=== PATIENT | male | born 1980 | race Caucasian/White ===

== ENCOUNTER 2018-04-18 07:57 | Emergency (ER) | payer BC ==
--- OUTSIDE RECORDS SUMMARY | 2018-04-18 08:12 | XMS REPORT | Continuity of Care Document ---
:1980 External Reference #:[id number] Author Name Jeancarlos Bullock M.D. Address [address] [place] [id number] Care Team Providers Name Role Phone Roque Morales, Care Team Information Manager Transit Unavailable Roque Morales, Primary Care Physician Unavailable Payers Date Identification Numbers Payment Provider Subscriber Effective: 2017 Policy Number: [id number] [facility] Ppo Hasmukh Zhu PayID: [id number] [address] [address] [place] [address] Advance Directives Description No Information Available Problems Date Description Provider Status Onset: 07/14/2017 Nicotine dependence Jeancarlos Bullock M.D. Active Note: 1 PPD- 23 years Onset: 07/14/2017 Generalized anxiety disorder Jaencarlos Bullock M.D. Active Onset: 07/28/2017 Mixed hyperlipidemia Jeancarlos Bullock M.D. Active Onset: 01/11/2018 Psoriasis Jeancarlos Bullock M.D. Active Note: sees feed mixer helper Onset: 02/07/2018 Atrial fibrillation Jeancarlos Bullock M.D. 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 Smoke-Free Home is not smoke-free Pets None Occupation Currently Working Work Status Currently Working Hand Dominance Right-handed ETOH Use Denies alcohol use Recreational Drug Use Denies Drug Use Tobacco Use Start: Unknown Heavy tobacco smoker (more than 10 cigarettes/day) Smoking Status Reviewed: 04/05/18 Heavy tobacco smoker (more than 10 cigarettes/day) Guns in Home No Smoke Alarms Yes UNKNOWN Spiritism Allergies, Adverse Reactions, Alerts Description No Known Drug Allergies Medications Medication Date Status Form Strength Qnty SIG Indications Ordering Provider Halobetasol 03/05/ Active Cream 0.05% 50gm Apply to L40.8 Kamal Propionate 2019 affected [facility], area twice M.D. a day for 2 weeks.Then 2 weeks off medication before resuming it. Otezla 03/05/ Active TBPK 10&20&30mg 55unit take as L40.8 Roque J 2019 s directed Carmen D.OEleni Omeprazole 07/14/ Active Capsules 20mg 90caps 1 by mouth K21.[address] every Kobe, day-otc M.D. Nicotine 07/14/ Active Patches 21mg/24HR 28unit Use 1 patch F17.210 2017 24HR s to skin Kobe, every 24 M.D. hours Clobetasol 10/30/ Hx Cream 0.05% 60gm apply twice L40.8 Rhonda Propionate 2018 - a day as Pulconnieo, 04/05/ directed N.P. 2019 Valacyclovir 09/22/ Hx Tablets 1gm 6tabs Take 1 tab L40.8 Kamal HCL 2018 - by twice Kobe, 01/11/ daily for 3 M.D. 2018 days Cephalexin 09/22/ Hx Capsules 500mg 21caps Take 1 L03.211 2017 - capsule Kobe, 09/29/ every 8 M.D. 2018 hours for 7 days Mupirocin 07/28/ Hx Ointment 2% 44gm apply L03.211 Kamfl 2017 - topically Kobe, 09/29/ to affected M.D. 2018 area twice daily No Active 07/14/ Hx Unknown Medications 2017 - 2017 Paroxetine HCL 07/14/ Hx Tablets 20mg 30tabs 1 by mouth F41.1 Kamal 2017 - every Kobe, 08/26/ morning M.D. 2018 Hydroxyzine 07/14/ Hx Capsules 25mg 30caps Take 1 tab F41.1 Kamal Pamoate 2018 - at bedtime Kobe, 08/26/ as needed M.D. 2018 for anxiety/sle ep Immunizations Description No Information Available Vital Signs Date Vital Result Comment 04/05/2018 1:41pm Body Temperature 96.7 F Weight 141.38 lb Heart Rate 80 /min BP Systolic 102 mmHg left arm BP Diastolic 80 mmHg left arm Respiratory Rate 18 /min Height 66 inches 5'6" BMI (Body Mass Index) 22.8 kg/m2 O2 % BldC Oximetry 96 % Ra Height in cm's 167.6 cm 03/05/2018 3:12pm Body Temperature 97.5 F Weight 142.00 lb Heart Rate 84 /min BP Systolic 128 mmHg BP Diastolic 70 mmHg Respiratory Rate 18 /min Height 66 inches 5'6" BMI (Body Mass Index) 22.9 kg/m2 Height in cm's 167.6 cm 01/11/2018 2:20pm Body Temperature 98.0 F Weight 147.00 lb Heart Rate 69 /min BP Systolic 120 mmHg left arm BP Diastolic 78 mmHg left arm Respiratory Rate 18 /min Height 66 inches 5'6" BMI (Body Mass Index) 23.7 kg/m2 O2 % BldC Oximetry 98 % Ra Left ear audiology results 20 db Right ear audiology results 20 db Right Visual Acuity Distance 20/20 Left Visual Acuity Distance 20/20 Height in cm's 167.6 cm 10/30/2017 4:03pm Body Temperature 96.7 F Weight 143.38 lb Heart Rate 71 /min BP Systolic 110 mmHg left arm BP Diastolic 80 mmHg left arm Respiratory Rate 18 /min Height 66 inches 5'6" BMI (Body Mass Index) 23.1 kg/m2 O2 % BldC Oximetry 97 % Ra Height in cm's 167.6 cm 09/29/2017 1:39pm Body Temperature 97.0 F Heart Rate 82 /min BP Systolic 116 mmHg left arm BP Diastolic 72 mmHg left arm Respiratory Rate 18 /min Height 66 inches 5'6" O2 % BldC Oximetry 96 % Ra Height in cm's 167.6 cm 09/22/2017 3:48pm Body Temperature 98.7 F Heart Rate 82 /min BP Systolic 110 mmHg left arm BP Diastolic 80 mmHg left arm Respiratory Rate 18 /min Height 66 inches 5'6" O2 % BldC Oximetry 96 % Ra Height in cm's 167.6 cm 08/25/2017 4:36pm Body Temperature 98.3 F Heart Rate 74 /min BP Systolic 138 mmHg BP Diastolic 82 mmHg Respiratory Rate 20 /min Height 66 inches 5'6" O2 % BldC Oximetry 98 % Height in cm's 167.6 cm 08/04/2017 4:19pm Body Temperature 96.5 F Weight 152.00 lb Heart Rate 89 /min BP Systolic 110 mmHg BP Diastolic 70 mmHg Height 66 inches 5'6" BMI (Body Mass Index) 24.5 kg/m2 O2 % BldC Oximetry 98 % Height in cm's 167.6 cm 07/28/2017 1:23pm Body Temperature 98.0 F Heart Rate 84 /min BP Systolic 130 mmHg BP Diastolic 80 mmHg Respiratory Rate 20 /min Height 66 inches 5'6" O2 % BldC Oximetry 98 % Height in cm's 167.6 cm 07/14/2017 10:42am Body Temperature 98.0 F Weight 154.12 lb Heart Rate 74 /min BP Systolic 130 mmHg BP Diastolic 100 mmHg BP Systolic Sitting 125 mmHg recheck BP Diastolic Sitting 80 mmHg recheck Respiratory Rate 20 /min Height 66 inches 5'6" BMI (Body Mass Index) 24.9 kg/m2 O2 % BldC Oximetry 98 % Height in cm's 167.6 cm Results Test Date Facility Test Result H/L Range Note CBC W/ Diff & PLT 03/05/2018 [facility] WBC 6.4 thous/L 3.8-10.8 1 RBC 4.64 mill/L 4.20-5.80 Hemoglobin 15.9 g/dL 13.2-17.1 Hematocrit 46.6 % 38.5-50.0 MCV 100.4 FL High 80.0-100.0 MCH 34.3 pg High 27.0-33.0 MCHC 34.1 g/dL 32.0-36.0 RDW 12.6 % 11.0-15.0 Platelet Count 187 thous/L 140-400 MPV 10.3 FL 7.5-12.5 Neutrophils,Absolute 4210 cells/L 1565-2378 Bands,Absolute PENDING Metamyelocytes,Absolute PENDING Myelocytes,Absolute PENDING Promyelocytes,Absolute PENDING Lymphocytes,Absolute 1480 cells/L 850-3900 Monocytes,Absolute 470 cells/L 200-950 Eosinophils,Absolute 240 cells/L 15-500 Basophils,Absolute 30 cells/L 0-200 Blast Cells,Absolute PENDING Nucleated RBC,Absolute PENDING Total Neutrophils,% 66 % 40-75 Bands,% PENDING Metamyelocytes,% PENDING Myelocytes,% PENDING Promyelocytes,% PENDING Total Lymphocytes,% 23 % 12-47 Reactive Lymphocytes PENDING Monocytes,% 7 % 4-12 Eosinophils,% 4 % 0-4 Basophils,% 1 % 0-1 2 Blasts,% PENDING Nucleated RBC PENDING Comment PENDING Comp Metabolic Panel 03/05/2018 [facility] Sodium 144 mmol/L 135-146 Potassium 4.2 mmol/L 3.5-5.3 Chloride 107 mmol/L 98-110 Carbon Dioxide 28 mmol/L 20-32 3 Calcium 9.7 mg/dL 8.6-10.3 Alkaline Phosphatase 83 U/L 40-115 Ast 24 U/L 10-40 Alt 31 U/L 9-46 Bilirubin,Total 0.4 mg/dL 0.2-1.2 Glucose 110 mg/dL High 65-99 4 Urea Nitrogen (BUN) 18 mg/dL 7-25 Creatinine 0.88 mg/dL 0.60-1.35 BUN/Creatinine Ratio 20.7 6-22 Protein,Total 7.2 g/dL 6.1-8.1 Albumin 4.8 g/dL 3.6-5.1 Globulin,Calculated 2.4 g/dL 1.9-3.7 A/G Ratio 2.0 1.0-2.5 Egfr Non-Afr. Bolivian 108 ML/MIN/1.73M2 > Or=60 Egfr 125 ML/MIN/1.73M2 > Or=60 Laboratory test finding 03/05/2018 [facility] Esr,Westergren 2 MM/HR 0-15 Rheumatoid Factor < 14 IU/mL <14 HSV 1/2 AB Igm Ifa W/RFX 09/22/2017 [facility] HSV 1 Igm Screen Negative Negative Titer HSV 2 Igm Screen Negative Negative 5 Herpeselect 1/2 Igg W/RFX 09/22/2017 [facility] HSV 1 Igg AB 38.90 INDEX High < 0.90 6 HSV-2 Inhib HSV 2 Igg AB < 0.90 INDEX < 0.90 7 Hepatitis C AB W/RFX 07/28/2017 [facility] Hepatitis C AB NON-REACTIVE Non- Reactive 8 To HCV Rna QN PCR Signal To Cutoff Ratio 0.05 Less Than 1.0 HIV 1/2 Ag & Abs 07/28/2017 [facility] HIV Ag/AB,4TH Gen NON-REACTIVE Non- Reactive 9 4TH Gen W/Reflexes Chlamydia/N 07/28/[address] [facility] [address],Rna,Tma,Urogen NOT DETECTED Not Detected 10 Gonorroeae Rna Tma ital Urogenit GC Rna,Tma,Urogen NOT DETECTED Not Detected 11 HSV 1/2 AB Igm Ifa W/RFX 07/28/2017 [facility] HSV 1 Igm Screen Negative Negative Titer HSV 2 Igm Screen Negative Negative 12 Laboratory test 07/28/2017 [facility] RPR (Monitor) NON-REACTIVE Non- Reactive 13 finding W/RFX Titer Hepatitis Acute 07/28/2017 [facility] HB S Ag NON-REACTIVE Non-Reactive Diag PNL Hepatitis A AB (Igm) NON-REACTIVE Non-Reactive HB Core AB (Igm) NON-REACTIVE Non-Reactive CBC W/ Diff & PLT 07/14/2017 [facility] WBC 7.2 thous/L 3.8-10.8 14 RBC 4.80 mill/L 4.20-5.80 Hemoglobin 16.1 g/dL 13.2-17.1 Hematocrit 47.9 % 38.5-50.0 MCV 99.7 FL 80.0-100.0 MCH 33.5 pg High 27.0-33.0 MCHC 33.6 g/dL 32.0-36.0 RDW 13.0 % 11.0-15.0 Platelet Count 175 thous/L 140-400 Platelet Sufficiency PENDING MPV 10.7 FL 7.5-12.5 Neutrophils,Absolute 4920 cells/L 7164-7976 Bands,Absolute PENDING Metamyelocytes,Absolute PENDING Myelocytes,Absolute PENDING Promyelocytes,Absolute PENDING Lymphocytes,Absolute 1460 cells/L 850-3900 Monocytes,Absolute 510 cells/L 200-950 Eosinophils,Absolute 260 cells/L 15-500 Basophils,Absolute 30 cells/L 0-200 Blast Cells,Absolute PENDING Nucleated RBC,Absolute PENDING Total Neutrophils,% 69 % 40-75 Bands,% PENDING Metamyelocytes,% PENDING Myelocytes,% PENDING Promyelocytes,% PENDING Total Lymphocytes,% 20 % 12-47 Monocytes,% 7 % 4-12 Eosinophils,% 4 % 0-4 Basophils,% 0 % 0-1 15 Blasts,% PENDING Nucleated RBC PENDING RBC Morphology PENDING Anisocytosis PENDING Poikilocytosis PENDING Microcytosis PENDING Macrocytosis PENDING Polychromasia PENDING Hypochromasia PENDING Target Cells PENDING Basophilic Stippling PENDING Comment PENDING Comp Metabolic Panel 07/14/2017 [facility] Sodium 140 mmol/L 135-146 Potassium 4.4 mmol/L 3.5-5.3 Chloride 103 mmol/L 98-110 Carbon Dioxide 32 mmol/L High 20-31 Calcium 10.1 mg/dL 8.6-10.3 Alkaline Phosphatase 83 U/L 40-115 Ast 39 U/L 10-40 Alt 98 U/L High 9-46 Bilirubin,Total 0.4 mg/dL 0.2-1.2 Glucose 60 mg/dL Low 65-99 16 Urea Nitrogen (BUN) 13 mg/dL 7-25 Creatinine 0.98 mg/dL 0.60-1.35 BUN/Creatinine Ratio 13.3 6-22 Protein,Total 7.9 g/dL 6.1-8.1 Albumin 5.0 g/dL 3.6-5.1 Globulin,Calculated 2.9 g/dL 1.9-3.7 A/G Ratio 1.8 1.0-2.5 Egfr Non-Afr. Bolivian 97 ML/MIN/1.73M2 > Or=60 Egfr 112 ML/MIN/1.73M2 > Or=60 Laboratory test finding 07/14/2017 [facility] TSH 2.29 mIU/L 0.40-4.50 Lipid Panel 07/14/2017 [facility] Cholesterol 214 mg/dL High <199 HDL Cholesterol 37 mg/dL Low >40 Cholesterol/HDL Ratio 5.8 CALC High <5.0 LDL Chol,Calculated 133 mg/dL High 0-100 17 Triglycerides 289 mg/dL High <150 Non-HDL Cholesterol 177 mg/dL High <130 18 [facility] 25-Hydroxy 07/14/2017 [facility] Vitamin D,25-Oh,Total 27 ng/mL Low 30-100 & 1,25 Dihydroxy Vitamin D,25-Oh,D3 27 ng/mL Vitamin D,25-Oh,D2 <4 ng/mL 19 Vitamin D,1,25 (Oh)2,Total 31 pg/mL 18-72 Vitamin D3,1,25 (Oh)2 31 pg/mL Vitamin D2,1,25 (Oh)2 <8 pg/mL 20 1 FASTING 2 Relative blood cell counts (%) should be compared with absolute cell counts (cells/mcL). Relative counts may not be clinically meaningful if the absolute count of one or more cell type is decreased. Reference ranges for relative cell counts derived from: A Manual of Laboratory and Diagnostics Tests, 9th Ed, Billie Heath & Ernandez, 2015. Pediatric Reference Intervals, 7th Ed, [facility], 2011. 3 Reference range for high altitude clients: 18-30 mmol/L 4 GLUCOSE REFERENCE RANGE BASED ON FASTING SPECIMEN. 5 The IFA procedure for measuring IgM antibodies to HSV 1 and HSV 2 detects both type-common and type-specific HSV antibodies. Thus, IgM reactivity to both HSV 1 and HSV 2 may represent crossreactive HSV antibodies rather than exposure to both HSV 1 and HSV 2. This test was developed and its analytical performance characteristics have been determined by [facility], [place], [place]. It has not been cleared or approved by the FDA. This assay has been validated pursuant to the CLIA regulations and is used for clinical purposes. 6 INDEX RESULTS INTERPRETATION ----- <0.90 NEGATIVE FOR ANTIBODIES TO HSV-1 IGG NO DETECTABLE ANTIBODIES TO HSV-1 OR HSV-2 WERE FOUND. A NEGATIVE RESULT GENERALLY INDICATES THAT THE PATIENT HAS NOT BEEN INFECTED, BUT DOES NOT ALWAYS RULE OUT ACUTE HSV INFECTION. IF CLINICAL EXPOSURE TO HSV IS SUSPECTED DESPITE A NEGATIVE FINDING, A SECOND SAMPLE SHOULD BE COLLECTED AND TESTED NO LESS THAN 4-6 WEEKS LATER. 0.90 - 1.10 EQUIVOCAL EQUIVOCAL SAMPLES SHOULD BE RETESTED ON A SECOND SAMPLE COLLECTED AND TESTED NO LESS THAN 4-6 WEEKS LATER. >=1.10 POSITIVE INDICATES THE PRESENCE OF DETECTABLE IGG ANTIBODY TO HSV-1 OR HSV-2 This assay utilizes recombinant type-specific antigens to differentiate HSV-1 from HSV-2 infections. A positive result cannot distinguish between recent and past infection. If recent HSV infection is suspected but the results are negative or equivocal, the assay should be repeated in 4-6 weeks. The performance characteristics of the assay have not been established for pediatric populations, immunocompromised patients or screening. 7 INDEX RESULTS INTERPRETATION ----- <0.90 NEGATIVE FOR ANTIBODIES TO HSV-2 IGG NO DETECTABLE ANTIBODIES TO HSV-1 OR HSV-2 WERE FOUND. A NEGATIVE RESULT GENERALLY INDICATES THAT THE PATIENT HAS NOT BEEN INFECTED, BUT DOES NOT ALWAYS RULE OUT ACUTE HSV INFECTION. IF CLINICAL EXPOSURE TO HSV IS SUSPECTED DESPITE A NEGATIVE FINDING, A SECOND SAMPLE SHOULD BE COLLECTED AND TESTED NO LESS THAN 4-6 WEEKS LATER. 0.90 - 1.10 EQUIVOCAL EQUIVOCAL SAMPLES SHOULD BE RETESTED ON A SECOND SAMPLE COLLECTED AND TESTED NO LESS THAN 4-6 WEEKS LATER. >=1.10 POSITIVE INDICATES THE PRESENCE OF DETECTABLE IGG ANTIBODY TO HSV-1 OR HSV-2 This assay utilizes recombinant type-specific antigens to differentiate HSV-1 from HSV-2 infections. A positive result cannot distinguish between recent and past infection. If recent HSV infection is suspected but the results are negative or equivocal, the assay should be repeated in 4-6 weeks. The performance characteristics of the assay have not been established for pediatric populations, immunocompromised patients or screening. 8 PATIENT UNABLE TO VOID; ADVISED TO RETURN FOR COLLECTION. SPLIT 07/28/2017 FROM [id number] PATIENT UNABLE TO VOID; ADVISED TO RETURN FOR COLLECTION. 9 HIV-1 antigen and HIV-1/HIV-2 antibodies were not detected. There is no laboratory evidence of HIV infection. PLEASE NOTE: This information has been disclosed to you from records whose confidentiality may be protected by state law. If your state requires such protection, then the state law prohibits you from making any further disclosure of the information without the specific written consent of the person to whom it pertains, or as otherwise permitted by law. A general authorization for the release of medical or other information is NOT sufficient for this purpose. For additional information please refer to http://education.OpenTable.10-20 Media/faq/KSB063 (This link is being provided for informational/ educational purposes only.) The performance of this assay has not been clinically validated in patients less than 2 years old. 10 This test was performed using the APTIMA COMBO2(R) Assay (GEN-PROBE(R). The analytical performance characteristics of this assay, when used to test SurePath(R) specimens have been determined by [facility]. 11 This test was performed using the APTIMA COMBO2(R) Assay (GEN-PROBE(R). The analytical performance characteristics of this assay, when used to test SurePath(R) specimens have been determined by [facility]. 12 The IFA procedure for measuring IgM antibodies to HSV 1 and HSV 2 detects both type-common and type-specific HSV antibodies. Thus, IgM reactivity to both HSV 1 and HSV 2 may represent crossreactive HSV antibodies rather than exposure to both HSV 1 and HSV 2. This test was developed and its analytical performance characteristics have been determined by [facility] [place], [place]. It has not been cleared or approved by the FDA. This assay has been validated pursuant to the CLIA regulations and is used for clinical purposes. 13 The RPR is a yjv-prifilvwer-kxtasxxo test; therefore a treponemal-specific confirmatory test should be performed unless prior syphilis infection has been documented for the patient. 14 FASTING 15 Relative blood cell counts (%) should be compared with absolute cell counts (cells/mcL). Relative counts may not be clinically meaningful if the absolute count of one or more cell type is decreased. Reference ranges for relative cell counts derived from: A Manual of Laboratory and Diagnostics Tests, 9th Ed, Billie Heath & Ernanedz, 2015. Pediatric Reference Intervals, 7th Ed, [facility], 2011. 16 GLUCOSE REFERENCE RANGE BASED ON FASTING SPECIMEN. 17 LDL-C is now calculated using the Lai-Rad calculation, which is a validated novel method providing better accuracy than the Friedewald equation in the estimation of LDL-C. Lai SCHERER et al.MARCELLE.2013;310(19):3239-7673 Desirable range <100 mg/dL for primary prevention; <70 mg/dL for patients with CHD or diabetic patients with >or=2 CHD risk factors. For additional information, please refer to http://[employer].Specific Media/faq/SZF607(This link is being provided for informational/educational purposes only.) 18 For patients with diabetes plus 1 major ASCVD risk factor, treating to a non-HDL-C goal of <100 mg/dL (LDL-C of <70 mg/ dL) is considered a therapeutic option. 19 25-OHD3 indicates both endogenous production and supplementation. 25-OHD2 is an indicator of exogenous sources such as diet or supplementation. Therapy is based on measurement of Total 25-OHD, with levels <20 ng/mL indicative of Vitamin D deficiency while levels between 20 ng/mL and 30 ng/mL suggest insufficiency. Optimal levels are > or=30 ng/mL. For more information on this test, go to http://[employer]WS [employer].PrimeraDx (Primera Biosystems)/faq/JQX887 20 Vitamin D3, 1,25(OH)2 indicates both endogenous production and supplementation. Vitamin D2, 1,25(OH)2 is an indicator of exogeous sources, such as diet or supplementation. Interpretation and therapy are based on measurement of Vitamin D,1,25(OH)2, Total. This test was developed and its analytical performance characteristics have been determined by [facility], [place], [place]. It has not been cleared or approved by the FDA. This assay has been validated pursuant to the CLIA regulations and is used for clinical purposes. Procedures Date Code Description Status 01/11/2018 18077 Visual Screening Test Completed 01/11/2018 32793 Brief Emotional/Behav Assessment W/ Scoring Doc Per Completed Standard Inst 01/11/2018 21566 Screening Hearing Test Completed 08/04/2017 88327 Electrocardiogram Complete Completed Encounters Type Date Location Provider Dx Diagnosis [facility] 03[facility]2018 [facility] Ro[facility] Morales L40.8 Other psoriasis 2:20p [facility] D.O. F17.210 Nicotine dependence, cigarettes, uncomplicated Office Visit 01/11/2018 2:[facility]p [facility] Bull[facility], Z00.00 [facility] M.DEleni general adult medical exam w/o abnormal findings Z13.89 Encounter for screening for other disorder F17.210 Nicotine dependence, cigarettes, uncomplicated Office Visit 10/30/2017 [facility] Rhonda L40.8 Other psoriasis 3:20p [facility] Pul[facility], N.P. Office Visit 09/29/2017 Teena Bullock, L03.211 Cellulitis of 1:30p [facility] M.D. 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 face R21 Rash and other nonspecific skin eruption D48.5 Neoplasm of uncertain behavior of skin Office Visit 08/04/2017 Teena Bullock, L03.211 Cellulitis of 4:15p [facility] M.D. face R00.2 Palpitations K21.9 Gastro-esophageal reflux disease without esophagitis Office Visit 07/28/2017 Teena Bullock, F41.1 Generalized 1:15p [facility] M.D. anxiety disorder L03.211 Cellulitis of face Z11.3 Encntr screen for infections w sexl mode of transmiss R94.5 Abnormal results of liver function studies E55.9 Vitamin D deficiency, unspecified E78.2 Mixed hyperlipidemia Office Visit 07/14/2017 10:00a [facility], M25.571 Pain in [place]ij[place] Mcdermott right ankle and joints of right foot F41.1 Generalized anxiety disorder K21.9 Gastro-esophageal reflux disease without esophagitis F17.210 Nicotine dependence, cigarettes, uncomplicated Plan of Treatment Future Appointment(s):07/05/2018 9:30 am - Jeancarlos Bullock M.D. at [facility]07/12/2018 9:15 am - Jeancarlos Bullock M.D. at [facility]
--- OUTSIDE RECORDS SUMMARY | 2018-04-18 08:12 | XMS REPORT | Continuity of Care Document ---
:1980 External Reference #:[id number] Author Name Saige Coats Care Team Providers Name Role Phone Roque Morales, Care Team Information Drier Feeder Unavailable Roque Morales, Primary Care Physician Unavailable Payers Date Identification Numbers Payment Provider Subscriber Effective: 2017 Policy Number: [id number] [facility] Ppo Hasmukh Zhu PayID: [id number] [address] [address] [place] [address] Advance Directives Description No Information Available Problems Date Description Provider Status Onset: 07/14/2017 Nicotine dependence Jeancarlos Bullock M.D. Active Note: 1 PPD- 21 years Onset: 07/14/2017 Generalized anxiety disorder Jeancarlos Bullock M.D. Active Onset: 07/28/2017 Mixed hyperlipidemia Jeancarlos Bullock M.D. Active Onset: 01/11/2018 Psoriasis Jeancarlos Bullock M.D. Active Onset: 02/07/2018 Atrial fibrillation Jeancarlos Bullock M.D. 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 Smoke-Free Home is not smoke-free Pets None Occupation Currently Working Work Status Currently Working Hand Dominance Right-handed ETOH Use Denies alcohol use Recreational Drug Use Denies Drug Use Tobacco Use Start: Unknown Heavy tobacco smoker (more than 10 cigarettes/day) Smoking Status Reviewed: 04/05/18 Heavy tobacco smoker (more than 10 cigarettes/day) Guns in Home No Smoke Alarms Yes UNKNOWN [employer] Allergies, Adverse Reactions, Alerts Description No Known Drug Allergies Medications Medication Date Status Form Strength Qnty SIG Indications Ordering Provider Halobetasol 03/05/ Active Cream 0.05% 50gm apply to L40.8 Roque J Propionate 2019 affected [place], area twice D.O. a day Otezla 03/05/ Active TBPK 10&20&30mg 55unit take as L40.8 Roque J 2019 s directed [place], D.O. Clobetasol 10/30/ Active Cream 0.05% 60gm apply twice L40.8 Rhonda Propionate 2018 a day as Ivy, directed N.P. Omeprazole 07/14/ Active Capsules 20mg 90caps 1 by mouth K21.[address] shine Kobe, day-otc M.D. Nicotine 07/14/ Active Patches 21mg/24HR 28unit Use 1 patch F17.210 2017 24HR s to skin Kobe, every 24 M.D. hours Valacyclovir 09/22/ Hx Tablets 1gm 6tabs Take 1 tab L40.8 Kamal HCL 2018 - by twice Kobe, 01/11/ daily for 3 M.D. 2018 days Cephalexin 09/22/ Hx Capsules 500mg 21caps Take 1 L03.211 Kam2017 - capsule Kobe, 09/29/ every 8 M.D. 2018 hours for 7 days Mupirocin 07/28/ Hx Ointment 2% 44gm apply L03.211 Kam2017 - topically Kobe, 09/29/ to affected M.D. 2018 area twice daily No Active 07/14/ Hx Unknown Medications 2017 - 2017 Paroxetine HCL 07/14/ Hx Tablets 20mg 30tabs 1 by mouth F41.1 Kamal 2017 - every Kobe, 08/26/ morning M.D. 2018 Hydroxyzine 07/14/ Hx Capsules 25mg 30caps Take 1 tab F41.1 Kamal Pamoate 2017 - at bedtime Kobe, 08/26/ as needed [...] MPV 10.3 FL 7.5-12.5 Neutrophils,Absolute 4210 cells/L 5232-6638 Bands,Absolute PENDING Metamyelocytes,Absolute PENDING Myelocytes,Absolute PENDING Promyelocytes,Absolute [...] 1.9-3.7 A/G Ratio 2.0 1.0-2.5 Egfr Non-Afr. Filipino 108 ML/MIN/1.73M2 > Or=60 Egfr 125 ML/MIN/1.73M2 [...] MPV 10.7 FL 7.5-12.5 Neutrophils,Absolute 4920 cells/L 7237-5780 Bands,Absolute PENDING Metamyelocytes,Absolute PENDING Myelocytes,Absolute PENDING Promyelocytes,Absolute [...] 1.9-3.7 A/G Ratio 1.8 1.0-2.5 Egfr Non-Afr. Filipino 97 ML/MIN/1.73M2 > Or=60 Egfr 112 ML/MIN/1.73M2 [...] Ernandez, 2015. Pediatric Reference Intervals, 7th Ed, [employer], 2011. 3 Reference range for high [...] analytical performance characteristics have been determined by [facility], [place], [place]. It has not been cleared or [...] TO RETURN FOR COLLECTION. SPLIT 07/28/2017 FROM [id number] PATIENT UNABLE TO VOID; ADVISED TO RETURN [...] purpose. For additional information please refer to http://education.[employer].SalesLoft/faq/PHD954 (This link is being provided for informational/ educational purposes only.) The performance of this assay has not been clinically validated in patients less than 2 years old. 10 This test was performed using the APTIMA COMBO2(R) Assay (GEN-PROBE(R). The analytical performance characteristics of this assay, when used to test SurePath(R) specimens have been determined by [facility]. 11 This test was performed using the APTIMA COMBO2(R) Assay (GEN-PROBE(R). The analytical performance characteristics of this assay, when used to test SurePath(R) specimens have been determined by [facility]. 12 The IFA procedure for measuring IgM antibodies to HSV 1 and HSV 2 detects both type-common and type-specific HSV antibodies. Thus, IgM reactivity to both HSV 1 and HSV 2 may represent crossreactive HSV antibodies rather than exposure to both HSV 1 and HSV 2. This test was developed and its analytical performance characteristics have been determined by [facility], [place], [place]. It has not been cleared or approved by the FDA. This assay has been validated pursuant to the CLIA regulations and is used for clinical purposes. 13 The RPR is a kss-lagfusoukm-tsladbea test; therefore a treponemal-specific confirmatory test should [...] Ernandez, 2015. Pediatric Reference Intervals, 7th Ed, [facility] [employer], 2011. 16 GLUCOSE REFERENCE RANGE BASED ON FASTING SPECIMEN. 17 LDL-C is now calculated using the Lai-Leroy calculation, which is a validated novel method providing better accuracy than the Friedewald equation in the estimation of LDL-C. Lai SS et al.MARCELLE.2013;310(06):9882-9722 Desirable range <100 mg/dL for primary prevention; <70 mg/dL for patients with CHD or diabetic patients with >or=2 CHD risk factors. For additional information, please refer to http://education.[employer]/faq/NQM751(This link is being provided for informational/educational purposes [...] more information on this test, go to http://education.[employer].SalesLoft/faq/QYG591 20 Vitamin D3, 1,25(OH)2 indicates both endogenous production and supplementation. Vitamin D2, 1,25(OH)2 is an indicator of exogeous sources, such as diet or supplementation. Interpretation and therapy are based on measurement of Vitamin D,1,25(OH)2, Total. This test was developed and its analytical performance characteristics have been determined by [facility], [place], [place]. It has not been cleared or approved by the FDA. This assay has been validated pursuant to the CLIA regulations and is used for clinical purposes. Procedures Date Code Description Status 01/11/2018 75407 Visual Screening Test Completed 01/11/2018 41499 Brief Emotional/Behav Assessment W/ Scoring Doc Per Completed Standard Inst 01/11/2018 04645 Screening Hearing Test Completed 08/04/2017 38439 Electrocardiogram Complete Completed Encounters Type Date Location Provider Dx Diagnosis Office Visit 03/05/2018 [facility] Roque Morales L40.8 Other psoriasis 2:20p [facility] D.O. F17.210 Nicotine dependence, cigarettes, uncomplicated Office Visit 01/11/2018 2:00p [facility] Jeancarlos Bullock, Z00.00 [facility] M.D. general adult medical exam w/o abnormal findings Z13.89 Encounter for screening for other disorder F17.210 Nicotine dependence, cigarettes, uncomplicated Office Visit 10/30/2017 [facility] Rhonda L40.8 Other psoriasis 3:20p [facility] Pulvino, N.P. Office Visit 09/29/2017 [facility] Jeancarlos Bullock, L03.211 Cellulitis of 1:30p [facility] M.D. 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 face R21 Rash and other nonspecific skin eruption D48.5 Neoplasm of uncertain behavior of skin Office Visit 08/04/2017 [facility] Jeancarlos Bullock, L03.211 Cellulitis of 4:15p [facility] M.D. face R00.2 Palpitations K21.9 Gastro-esophageal reflux disease without esophagitis Office Visit 07/28/2017 [facility] Jeancarlos Bullock, F41.1 Generalized 1:15p [facility] M.D. anxiety disorder L03.211 Cellulitis of face Z11.3 Encntr screen for infections w sexl mode of transmiss R94.5 Abnormal results of liver function studies E55.9 Vitamin D deficiency, unspecified E78.2 Mixed hyperlipidemia Office Visit 07/14/2017 10:00a [facility] Jeancarlos Bullock, M25.571 [facility] in [facility] right ankle and joints of right foot F41.1 Generalized anxiety disorder K21.9 Gastro-esophageal reflux disease without esophagitis F17.210 Nicotine dependence, cigarettes, uncomplicated Plan of Treatment Future Appointment(s):07/12/2018 9:15 am - Jeancarlos Bullock M.D. at [facility]04/05/2018 - Jeancarlos Bullock M.D.L40.8 Other psoriasis
[2018-04-18 08:26] VITALS: BP 130/87
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
== END 2018-04-18 09:48 | disposition home or self-care (01) ==
LOC: UCCORT 07:57
DX: S62.624A Displaced fracture of middle phalanx of right ring finger, initial encounter for closed fracture (principal); S80.02XA Contusion of left knee, initial encounter; F17.210 Nicotine dependence, cigarettes, uncomplicated; X58.XXXA Exposure to other specified factors, initial encounter; Y92.9 Unspecified place or not applicable
CPT/HCPCS: 73140; 99202; G0463